=== PATIENT | female | born 1955 | race Caucasian/White ===

== ENCOUNTER 2017-03-09 19:20 | Emergency (ER) | payer OTHER ==
[2017-03-09 19:25] VITALS: BP 113/92; PULSE 97; RESP 22; O2SAT 98
--- NOTE | 2017-03-09 19:29 | ED.REPORT ---
HPI-General Illness Date of Service Mar 09, 2017 ED Provider: Dr. 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 When they found the pt, she was slightly confused, slow to respond to questioning, and having difficulty with speech. Last known normal is an hour prior to arrival at the ED. history is somewhat difficult to obtain from the patient secondary to her mental status, however she is denying any complaints at this time, including chest pain, shortness of breath, fever, chills, abdominal pain, diarrhea, constipation, rash, dysuria, unilateral weakness or numbness, or other complaints at this time. Nursing Notes Stated Complaint: STROKE SYMPTOMS Chief Complaint: Stroke Symptoms Nursing Notes Reviewed: Yes Allergies: Coded Allergies: cefaclor (Verified Allergy, Unknown, 02/17/15) morphine (Verified Allergy, Unknown, 02/17/15) General Time Seen by MD: 19:28 Chief Complaint Contusion Hx Obtained From: Patient Arrived By: Walk-in Sudden in Onset?: Yes Onset Occurred: 1 - 4 hours ago Symptom Duration: Since onset Context: Occurred at: Workplace Recent Healthcare: No recent doctor visit, No recent hospitalization Similar Sx Previous: No Past Medical History Past Medical History Scoliosis depression Reports: Depression Past Surgical History Reports: Hysterectomy, Tonsillectomy Smoking History Unknown if Ever Smoker Social History nurse at hospital Alcohol Use: "Social" Drug Use: Denies drug use Other Social History: Local resident Ambulatory Status Independent Review of Systems Full Review of Systems Constitutional: Denies: Fever Eyes: Denies: Diplopia Ears / Nose / Throat: Denies: Throat pain Respiratory: Denies: Shortness of breath Cardiovascular: Denies: Chest pain GI: Denies: Abdominal pain Female: Denies: Dysuria Musculoskeletal: Denies: Back pain Skin: Denies Rash Neurologic: Reports: Confusion, Slurred speech, Denies: Problem walking Psychiatric: Reports: Anxiety, Change mental status, Denies: Hallucinations, auditory, Hallucinations, visual Complete sys rev & neg: except as marked. Physical Exam slow to respond, somewhat confused no other neuro deficit tachycardic Nursing note and vitals reviewed. Constitutional: Well-developed, well-nourished. Appears anxious. Head: Normocephalic and atraumatic. Mouth/Throat: Oropharynx is clear and moist. No oropharyngeal exudate. Eyes: EOM are normal. Pupils are equal, round, and reactive to light. Neck: Supple, no tracheal deviation. Cardiovascular: Normal rate, regular rhythm. Equal and intact distal pulses throughout. Pulmonary/Chest: Effort normal and breath sounds normal. No respiratory distress. Abdominal: Soft. No distension. There is no tenderness, rebound, or guarding. Bowel sounds present. Musculoskeletal: Range of motion grossly intact, moving all extremities. No edema or tenderness appreciated. Neurological: AOx3. Grossly nonfocal exam. Strength and sensation intact and equal to bilateral upper and lower extremities. Normal finger to nose testing. Cranial nerves II through XII grossly intact. Speech is clear. Skin: Warm and dry, no rashes or pallor appreciated. Psychiatric: Anxious but otherwise appropriate mood and affect. Behavior appears normal. Vital Signs Vital Signs Date Time Temp Pulse Resp B/P Pulse Ox O2 Delivery O2 Flow Rate FiO2 03/10/17 00:01 36.7 76 16 110/75 99 Room Air 03/09/17 22:50 72 16 105/75 99 Room Air 03/09/17 21:54 36.8 92 16 111/67 98 Room Air 03/09/17 20:28 36.7 81 16 105/74 99 Room Air 03/09/17 19:25 36.8 97 22 113/92 98 Room Air Initial VS: Reviewed Interpretation & Diagnostics Lab Results Interpretation Result Diagram: 03/09/17192903/09/171929 Test 03/09/17 19:30 03/09/17 20:14 03/09/17 20:55 White Blood Count 5.3th/mm3 (3.8-10.1) Red Blood Count 4.37mil/mm3 (3.90-5.20) Hemoglobin 13.6g/dL (12.0-15.6) Hematocrit 40.2% (35.0-46.0) Mean Corpuscular Volume 92.0fL (81-100) Mean Corpuscular Hemoglobin 31.1pg (27.0-35.0) Mean Corpuscular Hemoglobin Concent 33.8% (32.0-37.0) Red Cell Distribution Width 13.6% (12.3-15.4) Platelet Count 339bil/L (150-400) Neutrophils (%) (Auto) 58.7% (40-74) Lymphocytes (%) (Auto) 33.7% (14-46) Monocytes (%) (Auto) 5.7% (4-12) Eosinophils (%) (Auto) 1.3% (0-5) Basophils (%) (Auto) 0.4% (0-3) Hold Purple Top Tube Received (Received) Prothrombin Time 9.5sec (8.1-12.5) Prothromb Time International Ratio 0.89ratio Activated Partial Thromboplast Time 29.3sec (22.8-33.0) Hold Blue Top Tube Received (Received) Sodium Level 142mEq/L (134-144) Potassium Level 3.9mEq/L (3.5-5.2) Chloride Level 104mEq/L (97-108) Carbon Dioxide Level 21mmol/L (18-29) Blood Urea Nitrogen 6mg/dL (8-27) Creatinine 0.65mg/dL (0.57-1.00) Estimat Glomerular Filtration Rate 133mL/min (>59) Glucose Level 122mg/dL (60-99) Calcium Level 9.3mg/dL (8.5-10.1) Total Bilirubin 0.2mg/dL (0.0-1.2) Aspartate Amino Transf (AST/SGOT) 35U/L (0-50) Alanine Aminotransferase (ALT/SGPT) 25U/L (0-32) Alkaline Phosphatase 70U/L (25-165) Troponin T < 0.010ug/L (0.0-0.011) Total Protein 7.4g/dL (6.4-8.4) Albumin 4.6g/dL (3.4-5.0) Hold Red Top Tube Received (Received) Hold Willington Top Tube Received (Received) Hold Eng Top Tube Received (Received) Urine Color Straw (YELLOW) Urine Appearance Clear (CLEAR,HAZY) Urine pH 5.0 (5.0-8.0) Urine Specific Stewart 1.005 (1.003-1.035) Urine Protein Negativemg/dL (NEG,TRACE) Urine Glucose (UA) Negativemg/dL (NEGATIVE) Urine Ketones Negativemg/dL (NEGATIVE) Urine Occult Blood Trace (NEGATIVE) Urine Nitrite Negative (NEGATIVE) Urine Bilirubin Negative (NEGATIVE) Urine Urobilinogen Normalmg/dL (NORMAL) Urine Leukocyte Esterase Negative (NEGATIVE) Urine RBC 0-2/hpf (0-2) Urine WBC 0-5/hpf (0-5) Urine Epithelial Cells None/hpf (NONE-MOD) Urine Crystals None seen (NONE SEEN) Urine Bacteria None/hpf (NONE-FEW) Urine Hyaline Casts None/lpf (NONE) Urine Granular Casts None seen (NONE SEEN) Urine Waxy Casts None seen (NONE SEEN) Urine Red Blood Cell Casts None seen (NONE SEEN) Urine White Blood Cell Casts None seen (NONE SEEN) Urine Mucus None seen (None Seen) Urine Trichomonas None seen (NONE SEEN) Urine Yeast None (NONE SEEN) Urinalysis Comment None Urine Culture Reflexed Not indicated Urine Opiates Screen Negative Urine Methadone Screen Negative Urine Barbiturates Screen Negative Urine Amphetamines Screen Negative Urine Benzodiazepines Screen Negative Urine Cocaine Metabolite Screen Negative Urine Cannabinoids Screen Negative Alcohols 208mg/dL (0-10) Lab Results Interpretation: LABS: CBC grossly within normal limits repeat CBC normal CMP normal Troponin negative Urine tox screen negative UA negative Blood alcohol 244, repeat 208 ECG Interpretation ECG Interpretation: sinus arrhythmia (rate 85) Time: 19:55 Interpreted by: ED physician X-Ray Chest Interpretation Chest Xray Interpretation: IMPRESSION: No radiographic evidence of acute cardiopulmonary pathology. Dictated by: Chad Mason M.D. on 03/09/2017 at 20:16 Approved by: Chad Mason M.D. on 03/09/2017 at 20:16 View: Portable Interpretation / Wet Read by: Interpret - Radiologist CT Head Interpretation IMPRESSION: negative for acute intracranial abnormality Study: Head CT no contrast Interpretation / Wet Read by: Interpret - Radiologist Re-Eval/Medical Decision Med Decision/Clinical Course In summary, 61-year-old female presenting to the ED for evaluation of one hour of altered mental status and slurred speech. Differential includes stroke, electrolyte abnormality, alcohol abuse/intoxication, acute drug ingestion. Upon arrival, concerned the patient may be having a stroke according to nursing staff that accompanied her and she was made a stroke code. Taken to the CT scanner and CT scan demonstrated no acute intracranial abnormality. TPA was not given because the patient had relatively mild, resolving symptoms. Chest x- ray negative for acute abnormality. EKG demonstrates sinus arrhythmia with no acute ischemic changes.. Laboratory studies reviewed, notable for a normal CBC and CMP, negative troponin, negative urine tox screen, UA without evidence of infection; however, patient's blood alcohol was noted to be 244. This was repeated an hour and half later and was 208. Upon later discussion with the patient, she admits that she has been drinking alcohol this evening and that this was the cause of her change in mental status. Her is present and feels comfortable taking her home. Her symptoms are resolving. With no focal neurologic findings and a clear etiology for her symptoms, this seems reasonable. Plan discharge home with careful return precautions, PCP follow-up , and instructions to abstain from alcohol use and get appropriate help. Patient agreeable to this plan as stated, no further questions. Counseled Regarding: Diagnosis, Lab results, Need for follow-up, When/why to return to ED Discharge & Departure Primary Impression: Alcohol intoxication Complication of substance-induced condition: uncomplicated Qualified Code: F10.120 - Alcohol abuse with intoxication, uncomplicated Disposition: Home Discharge Condition All VS Reviewed: Yes Condition: Stable Patient Instructions: Abuse of Alcohol (ED), Alcohol Dependence (ED), Alcohol Intoxication (DC) Additional Instructions: Thank you for entrusting us with your care today. Use Tylenol and Ibuprofen as needed for pain. Follow up with your primary care physician. Return to the Emergency Department if you experience any new or worsening symptoms. I hope you feel better soon! Referrals: Art Velasquez MD (PCP) Alcoholics Anonymous (AA) Scribe Attestation Portion of this note were transcribed by Bre Sevilla. I, Dr. Vicente, personally performed the history, physical exam, and medical decision-making: I reviewed and confirmed the accuracy for the information in the transcribed note. Signed by: zee Junior, 03/09/17 2200 copies to: Art Velasquez MD, William B MD Mar 09, 2017 19:28 Bre Sevilla Mar 09, 2017 19:32
[2017-03-09] MEDS ORDERED: 0.9% Sodium Chloride 1,000 ML IV ONE (19:30)
[2017-03-09 19:39] LABS: BASOPHILS % (AUTO) 0.4 % (0-3); EOSINOPHILS % (AUTO) 1.3 % (0-5); MONOCYTES % (AUTO) 5.7 % (4-12); Mean Corpuscular Hemoglobin 31.1 pg (27.0-35.0); NEUTROPHILS % (AUTO) 58.7 % (40-74); Platelet Count 339 bil/L (150-400)
--- NOTE | 2017-03-09 19:39 | DRSVH ---
PROCEDURE: CT BRAIN (TPA) ([id number]) INDICATIONS: confusion, code stroke TECHNIQUE: Noncontrast 4.5 mm thick angled axial sections acquired from the foramen magnum to the vertex, with c oronal reformats. COMPARISON: None. FINDINGS: Image quality: Excellent. CSF spaces: Basal cisterns are patent. No extra-axial fluid collections. Ventricles are normal in size and shape. Brain: No midline shift. No intracranial masses or hemorrhage. Nix-white matter interface is norm al. Skull and face: Calvarium and visualized facial bones are intact, without suspicious lesions. Sinuses: Visualized sinuses and mastoids are clear. IMPRESSION: No CT evidence of acute intracranial pathology. This study fulfills neurological imaging criteria for inclusion or exclusion of acute stroke therapie s based on available published neurological imaging guidelines. Dictated by: Chad Mason M.D. on 03/09/2017 at 19:36 Approved by: Chad Msaon M.D. on 03/09/2017 at 19:37
[2017-03-09 19:56] LABS: INR 0.89 ratio
[2017-03-09 20:03] LABS: TROPONIN T < 0.010 ug/L (0.0-0.011)
--- NOTE | 2017-03-09 20:10 | ABG ---
DateTimeAnalyzed 20:02:56 -_ pH ____7.369 - 7.350 7.450 pCO2 ___38.6__ -mmHg 35.0 45.0 pO2 ___75.2__ -mmHg 69.0 116 HCO3- ___22.3__ -mmol/L 22.0 26.0 ABE ___-2.8__ -mmol/L tHb ___12.8__ -g/dL O2Hb ___93.7__ -% COHb ____1.1__ -% 1.5 MetHb ____0.2__ -% sO2 ___94.9__ -% FIO2 ___21.0__ -% Drawn By MK - Date/Time Notified____ 20:09:00 -_ K+ ____3.4__ -mmol/L tO2 ___16.9__ -Vol% Eugenio test _Positive -
--- NOTE | 2017-03-09 20:19 | DRSVH ---
PROCEDURE: X-RAY CHEST ONE VIEW, PORTABLE ([id number]) INDICATIONS: STROKE EVAL TECHNIQUE: One view of the chest was acquired. COMPARISON: None. FINDINGS: Surgical changes and devices: None. Lungs and pleura: No pleural effusions or pneumothorax. Lungs are clear. Mediastinum: Mediastinal contours appear normal. Heart size is normal. Bones and chest wall: No suspicious bony lesions. Overlying soft tissues appear unremarkable. Prom inent gas-filled loops of bowel in the left upper quadrant. IMPRESSION: No radiographic evidence of acute cardiopulmonary pathology. Dictated by: Chad Mason M.D. on 03/09/2017 at 20:16 Approved by: Chad Mason M.D. on 03/09/2017 at 20:16
[2017-03-09 20:24] LABS: APPEARANCE,URINE CLEAR (CLEAR,HAZY); COLOR,URINE STRAW (YELLOW)
[2017-03-09 20:25] LABS: OCCULT BLOOD,URINE TRACE (NEGATIVE); UROBILINOGEN,URINE NORMAL (NORMAL)
[2017-03-09 20:28] VITALS: BP 105/74; PULSE 81; RESP 16; O2SAT 99
[2017-03-09 21:54] VITALS: BP 111/67; PULSE 92; RESP 16; O2SAT 98
[2017-03-09 22:50] VITALS: BP 105/75; PULSE 72; RESP 16; O2SAT 99
[2017-03-10 00:01] VITALS: BP 110/75; PULSE 76; RESP 16; O2SAT 99
== END 2017-03-10 00:31 | disposition home or self-care (01) ==
LOC: SED 19:20
DX: F10.120 Alcohol abuse with intoxication, uncomplicated (principal); F32.9 Major depressive disorder, single episode, unspecified; Z88.5 Allergy status to narcotic agent; Z88.1 Allergy status to other antibiotic agents
CPT/HCPCS: 36415; 36620; 70450; 71010; 80053; 81000; 82375; 82803; 82948; 84484; 85025; 85610; 85730; 93005; 96360; 99285; G0481; J7030